=== PATIENT | female | born 1975 ===

== ENCOUNTER 2024-08-02 06:34 | Day surgery (SDC) | payer OTHER ==
[2024-07-25 08:27] VITALS: BP 139/83
[2024-07-25 09:07] LABS: PH,URINE 6.5 (5.0-8.0); URINE APPEARANCE Clear; URINE BILIRRUBIN Negative (NEGATIVE); URINE BLOOD Negative; URINE COLOR Yellow; URINE GLUCOSE Negative (NEGATIVE); URINE KETONE Negative (NEGATIVE); URINE LEUKOCYTE Negative; URINE NITRATE Negative; URINE PROTEIN Negative (NEGATIVE)
[2024-07-25 09:09] LABS: HEMATOCRIT 41.7 % (36.0-45.00); HEMOGLOBIN 14.2 g/dL (12.0-15.00); MEAN CELL VOLUME 93.9 fL (80.00-100.00); MEAN CORPUSCULAR HEMOGLOBIN 31.9 pg (27.00-32.0); PLATELET COUNT 197 K/uL (150-450); RED BLOOD COUNT 4.44 M/uL (4.00-6.00); RED CELL DISTRIBUTION WIDTH 13.5 % (11.5-14.5)
[2024-07-25 09:12] LABS: URINE BACTERIA 1734.3 uL (0.0-1933); URINE EPITHELIAL CELLS 38.7 uL (0.0-38.8); URINE RBC 2.2 uL (0.0-20.8); URINE WBC 6.1 uL (0.0-23.2)
[2024-07-25 09:25] LABS: INR 1.03; PROTHROMBIN TIME 11.2 SECONDS (9.0-11.5)
[2024-07-25 10:31] LABS: ALBUMIN 4.4 gm/dL (3.4-5.0); BILIRUBIN TOTAL 0.63 mg/dL (0.3-1.2); CALCIUM 9.8 mg/dL (8.5-10.1); CREATININE SERUM 0.82 mg/dL (0.55-1.02); GFR 74.41; GLOBULINA 3.8 G/DL (2.4-3.5); POTASSIUM 4.8 mEq/L (3.5-5.1); TOTAL PROTEIN 8.2 gm/dL (6.4-8.2)
[~2024-08-02] VITALS: Ht 157.5 cm; Wt 60.8 kg
[~2024-08-02 06:34] MED LIST: MULTIVITAMINS1 EAC1 PO
[2024-08-02] MEDS ORDERED: KETOROLAC TROMETHAMINE 30 MG VIAL IJ ONE (09:30)
[2024-08-02] MEDS ORDERED: BUPIVACAINE HCL 30 ML VIAL IV ONE (09:30)
[2024-08-02] MEDS ORDERED: CEFAZOLIN SODIUM 1,000 MG VIAL IV ONE (09:30)
[2024-08-02] MEDS ORDERED: KETOROLAC TROMETHAMINE 30 MG VIAL IV ONE (09:30)
== END 2024-08-02 12:15 | disposition home or self-care (01) ==
LOC: CIR.AMB 06:34
PROVIDERS: ATTEND Orthopaedic Surgery
DX: M24.821 Other specific joint derangements of right elbow, not elsewhere classified (principal); M67.931 Unspecified disorder of synovium and tendon, right forearm; M66.231 Spontaneous rupture of extensor tendons, right forearm